=== PATIENT | male | born 1935 | race Caucasian/White ===

== ENCOUNTER 2018-10-24 02:52 | Observation (INO) | payer OTHER ==
[~2018-10-24] VITALS: Ht 165.1 cm; Wt 68.0 kg
[2018-10-24] MEDS ORDERED: FUROSEMIDE 10 MG/ML 2ML VIAL ONE ×2 (03:07→13:55)
[2018-10-24] MEDS ORDERED: ASPIRIN 325 MG TABLET ONE ×2 (03:08→08:55)
[2018-10-24] MEDS ORDERED: NITROGLYCERIN 0.4 MG SL TAB SL ONE (03:08)
[2018-10-24] MEDS ORDERED: NITROGLYCERIN 1GM/1 INCH PACKET TD ONE ×2 (03:08→11:17)
[2018-10-24 03:16] LABS: BASOPHILS % (AUTO) 0.9 % (0.0-5.0); CREATININE 1.8 mg/dL (0.5-1.5); EOSINOPHILS % (AUTO) 3.8 % (0.0-8.0); LYMPHOCYTES % (AUTO) 21.5 % (21.0-51.0); MEAN CORPUSCULAR HEMOGLOBIN 31.9 pg (27.0-33.0); MEAN CORPUSCULAR HGB CONC 34.1 g/dL (32.0-36.0); MEAN CORPUSCULAR VOLUME 93.7 fL (79-99); MONOCYTES % (AUTO) 9.6 % (3.0-13.0); NEUTROPHILS % (AUTO) 64.2 % (40.0-77.0); NUCLEATED RED BLOOD CELLS 0.1 % (0.0-0.19); PLATELET COUNT (AUTO) 232 K/uL (130-400); POTASSIUM 3.9 mmol/L (3.5-5.1); RED BLOOD CELL COUNT(AUTO) 3.95 MIL/uL (4.50-6.20); RED CELL DISTRIBUTION WIDTH 15.4 % (11.0-15.5); WHITE BLOOD COUNT (AUTO) 8.1 K/uL (4.8-10.8)
[2018-10-24 03:21] LABS: ALBUMIN 3.9 g/dL (3.5-5.0); TOTAL PROTEIN, SERUM 7.2 g/dL (6.0-8.3)
[2018-10-24 03:27] LABS: INR 2.01 (0.85-1.15); PARTIAL THROMBOPLASTIN TIME 36.8 SEC (26.3-35.5); PROTHROMBIN TIME 20.8 SEC (9.6-11.6)
[2018-10-24 03:47] LABS: B-TYPE NATRIURETIC PEPTIDE 463 pg/mL (0-100)
[2018-10-24] MEDS ORDERED: MORPHINE SULFATE 2 MG/ML 1ML SYG IV PRN (05:15)
[2018-10-24] MEDS ORDERED: NITROGLYCERIN 1GM/1 INCH PACKET TD SCH (05:15)
[2018-10-24] MEDS ORDERED: ACETAMINOPHEN 325 MG TAB PO PRN (05:15)
[2018-10-24] MEDS ORDERED: ONDANSETRON HCL 4 MG/2 ML VIAL IV PRN (05:15)
[2018-10-24] MEDS ORDERED: FUROSEMIDE 10 MG/ML 4ML VIAL ONE (08:56)
[2018-10-24] MEDS ORDERED: METOPROLOL TARTRATE 25 MG TAB ONE (08:56)
[2018-10-24] MEDS ORDERED: ENOXAPARIN SODIUM 30 MG/0.3 ML SQ ONE (08:56)
[2018-10-24] MEDS ORDERED: FAMOTIDINE/PF 20 MG/2 ML VIAL IV ONE (08:57)
[2018-10-24] MEDS ORDERED: METOPROLOL TARTRATE 25 MG TAB PO SCH (09:00)
[2018-10-24] MEDS ORDERED: ASPIRIN 325 MG TABLET PO SCH (09:00)
[2018-10-24] MEDS ORDERED: FUROSEMIDE 10 MG/ML 4ML VIAL IVP SCH (09:00)
[2018-10-24] MEDS ORDERED: FAMOTIDINE/PF 20 MG/2 ML VIAL IV SCH (09:00)
[2018-10-24] MEDS ORDERED: ENOXAPARIN SODIUM 30 MG/0.3 ML SQ SCH (09:00)
[2018-10-24] MEDS ORDERED: INSULIN HUMULIN R 100 UNIT/ML 3ML ONE (12:18)
[2018-10-24] MEDS ORDERED: IPRATROPIUM/ALBUTEROL SULFATE 3 ML SOLUTION IH ONE (13:58)
--- NOTE | 2018-10-24 14:56 | NUR ---
DC PT WAS ADMITTED IN ER AND DISCHARGE IN ER, DC INSTRUCTIONS GIVEN TO PT WITH RX, INSTRUCTED TO F/U WITH PCP IN 7 DAYS, AND TO CONTINUE HOME MEDS INSTRUCTED BY DR. RAINEY. NO IV NOTED. DC BY ER NURSE SHARRON. PT AWAKE AND ALERT, NO DISTRESS NOTED. DENIED ANY PAIN OR DISCOMFORTS.
[2018-10-24] MEDS ORDERED: IPRATROPIUM/ALBUTEROL SULFATE 3 ML SOLUTION IH SCH (18:00)
[2018-10-25] MEDS ORDERED: FAMOTIDINE/PF 20 MG/2 ML VIAL IV SCH (09:00)
== END 2018-10-24 15:07 | disposition home or self-care (01) ==
LOC: EDH 02:52 → EDHIP 04:45
PROVIDERS: ADMIT Internal Medicine; ATTEND Internal Medicine
DX: J44.1 Chronic obstructive pulmonary disease with (acute) exacerbation (principal); I25.10 Atherosclerotic heart disease of native coronary artery without angina pectoris; E11.9 Type 2 diabetes mellitus without complications; E78.2 Mixed hyperlipidemia; I11.0 Hypertensive heart disease with heart failure; I50.9 Heart failure, unspecified; Z87.891 Personal history of nicotine dependence; Z95.0 Presence of cardiac pacemaker; Z95.5 Presence of coronary angioplasty implant and graft
CPT/HCPCS: 36415; 71045; 80053; 82550; 82948 ×2; 83880; 84484 ×2; 85025; 85610; 85730; 93005; 94640; 94660; 94664; 99284; G0378 ×10; J1650; J1815; J1940 ×2; J3490